=== PATIENT | male | born 1985 | race Caucasian/White ===

== ENCOUNTER 2017-06-01 14:09 | Emergency (ER) | payer OTHER ==
[2017-06-01 16:26] LABS: BASOPHIL % 0.3 % (0-2); PLATELET COUNT 232 x10^3mcL (130-400); RED CELL DISTRIBUTION WIDTH 13.2 % (11.5-14.5)
[2017-06-01 16:30] LABS: CALCIUM 8.9 mg/dL (8.5-10.1); CHLORIDE SERUM 100 mmol/L (98-107); CREATININE SERUM 0.9 mg/dL (0.7-1.3); GFR1 > 60 mL/min; GLUCOSE SERUM 280 mg/dL (74-106); SODIUM SERUM 136 mmol/L (136-145)
[2017-06-01 16:36] LABS: ALBUMIN 3.7 g/dL (3.4-5.0); ALKALINE PHOSPHATASE 107 U/L (46-116); ALT/SGPT 460 U/L (16-63); AST/SGOT 273 U/L (15-37); BILIRUBIN TOTAL 0.61 mg/dL (0.20-1.00); PHOSPHOROUS 3.1 mg/dL (2.5-4.9); TOTAL PROTEIN, SERUM 7.4 g/dL (6.4-8.2); URIC ACID 4.3 mg/dL (3.5-7.2)
[2017-06-01 16:37] LABS: CHOLESTEROL 311 mg/dL (<200); HDL CHOLESTEROL 33 mg/dL (40-60)
[2017-06-01 17:42] VITALS: BP 130/55
== END 2017-06-01 17:42 | disposition home or self-care (01) ==
LOC: ED 14:09
PROVIDERS: Emergency Medicine
DX: E11.9 Type 2 diabetes mellitus without complications (principal)
CPT/HCPCS: 82962; J7030; Q0092

== ENCOUNTER 2018-08-22 12:36 | Inpatient (IN) | payer OTHER ==
[~2018-08-22] VITALS: Ht 172.7 cm; Wt 81.6 kg
[2018-08-22 12:45] VITALS: Ht 172.7 cm; Wt 81.6 kg
[2018-08-22 13:18] LABS: BASOPHIL % 0.3 % (0-2); PLATELET COUNT 314 x10^3mcL (130-400); RED CELL DISTRIBUTION WIDTH 13.6 % (11.5-14.5)
[2018-08-22 13:27] LABS: CALCIUM 8.8 mg/dL (8.5-10.1); CARBON DIOXIDE 30.8 mmol/L (21-32); CHLORIDE SERUM 106 mmol/L (98-107); GFR1 > 60 mL/min; GLUCOSE SERUM 157 mg/dL (74-106); POTASSIUM SERUM 4.1 mmol/L (3.5-5.1); SODIUM SERUM 141 mmol/L (136-145)
[2018-08-22 13:31] LABS: ALBUMIN 3.4 g/dL (3.4-5.0); ALKALINE PHOSPHATASE 88 U/L (46-116); ALT/SGPT 44 U/L (16-63); AST/SGOT 25 U/L (15-37); BILIRUBIN TOTAL 0.4 mg/dL (0.20-1.00); TOTAL PROTEIN, SERUM 7.1 g/dL (6.4-8.2)
[2018-08-22 14:59] LABS: AMPHETAMINE QUAL UR POSITIVE (See below)
[2018-08-23 13:42] LABS: CHOLESTEROL/HDL RATIO 4.1; MAGNESIUM 1.9 mg/dL (1.8-2.4); PHOSPHOROUS 2.6 mg/dL (2.5-4.9)
[2018-08-23 13:48] LABS: FREE T4 0.88 ng/dL (0.76-1.46); FREE THYROXINE INDEX 2.1 ug/dL (1.4-4.5); T4(THYROXINE) 6.5 ug/dL (4.7-13.3)
[2018-08-23 13:51] LABS: T3 TOTAL 1.22 ng/mL
[2018-08-23 18:44] VITALS: BP 127/74
[2018-08-23 19:56] VITALS: BP 137/81
[2018-08-24 05:33] LABS: BASOPHIL % 0.7 % (0-2); PLATELET COUNT 328 x10^3mcL (130-400); RED CELL DISTRIBUTION WIDTH 13.7 % (11.5-14.5)
[2018-08-24 05:45] LABS: CALCIUM 8.6 mg/dL (8.5-10.1); CARBON DIOXIDE 27.8 mmol/L (21-32); CHLORIDE SERUM 107 mmol/L (98-107); CREATININE SERUM 0.7 mg/dL (0.7-1.3); GFR1 > 60 mL/min; GLUCOSE SERUM 194 mg/dL (74-106); PHOSPHOROUS 3.3 mg/dL (2.5-4.9); POTASSIUM SERUM 3.9 mmol/L (3.5-5.1); SODIUM SERUM 140 mmol/L (136-145)
[2018-08-24 08:19] VITALS: BP 141/100
[2018-08-24 10:52] LABS: microscopic required? NO
[2018-08-24 11:56] LABS: urine erythrocyte NEGATIVE (NEGATIVE)
[2018-08-24 13:56] VITALS: BP 135/92
== END 2018-08-24 14:30 | disposition home or self-care (01) | DRG 52 ==
LOC: ED 12:36 → IC 08-23 13:18 → MU 08-23 13:18 → IC 08-23 17:04
PROVIDERS: Emergency Medicine; Family Medicine
DX: G92 Toxic encephalopathy (principal); E87.2 Acidosis; R45.851 Suicidal ideations; E11.65 Type 2 diabetes mellitus with hyperglycemia; F15.19 Other stimulant abuse with unspecified stimulant-induced disorder; F31.30 Bipolar disorder, current episode depressed, mild or moderate severity, unspecified; E66.9 Obesity, unspecified; F10.10 Alcohol abuse, uncomplicated; Y90.0 Blood alcohol level of less than 20 mg/100 ml; F41.9 Anxiety disorder, unspecified; R45.850 Homicidal ideations; J45.909 Unspecified asthma, uncomplicated; Z68.23 Body mass index [BMI] 23.0-23.9, adult; Z91.14 Patient's other noncompliance with medication regimen; Z90.49 Acquired absence of other specified parts of digestive tract; Z79.899 Other long term (current) drug therapy; Z72.0 Tobacco use; Z71.51 Drug abuse counseling and surveillance of drug abuser; Z71.89 Other specified counseling; Z79.84 Long term (current) use of oral hypoglycemic drugs
CPT/HCPCS: 82962; 83880; 84439; G0480; J7030